=== PATIENT | female | born 1975 | race Asian ===

== ENCOUNTER 2018-01-05 22:04 | Emergency (ER) | payer BC ==
--- NOTE | 2018-01-05 23:23 | RAD ---
LEFT HAND THREE VIEW 01/05/18 HISTORY: Pain. COMPARISON: None. FINDINGS: No acute fracture or malalignment. No radiopaque foreign object. IMPRESSION: No acute abnormality. POS: JUSTIN
[2018-01-05] MEDS ORDERED: Bacitracin Zinc 1 Packet ONE (23:48)
== END 2018-01-05 23:54 | disposition home or self-care (01) ==
LOC: SCSER 22:04
DX: S60.222A Contusion of left hand, initial encounter (principal); S50.312A Abrasion of left elbow, initial encounter; V00.131A Fall from skateboard, initial encounter

== ENCOUNTER 2018-06-20 15:02 | Outpatient (CLI) | payer BC ==
--- NOTE | 2018-06-20 16:30 | MMO ---
BILATERAL SCREENING MAMMOGRAM: Date: 06/20/18 INDICATION: Annual exam. COMPARISON: Prior exam dated 11/01/16 and 07/15/15. FINDINGS: Interpretation of this exam was assisted with computer-aided detection. The breast parenchyma is extremely dense, which limits the sensitivity of mammography. There are benign-appearing calcifications within the right breast. No suspicious mass, cluster of microcalcifications, or area of architectural distortion is evident. IMPRESSION: BIRADS 2: Benign Finding(s) Recommend routine annual mammographic screening. POS: JUSTIN
== END 2018-06-20 15:03 | disposition home or self-care (01) ==
LOC: SCSMAMMO 15:02
PROVIDERS: ATTEND Family Medicine
DX: Z12.31 Encounter for screening mammogram for malignant neoplasm of breast (principal)
CPT/HCPCS: 77067